=== PATIENT | male | born 1990 | race African-American/Black ===

== ENCOUNTER 2024-02-17 12:00 | Emergency (ER) | payer OTHER, SELFPAY ==
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
--- NOTE | ~2024-02-17 | CT_ITS ---
EXAMINATION: CT CERVICAL SPINE WITHOUT CONTRAST CLINICAL INFORMATION: Trauma. Pain COMPARISON: None available. TECHNIQUE: Thin section axial imaging with sagittal and coronal reformats. This CT examination was performed using dose optimization techniques as appropriate, variously including the following: *Automated exposure control *Adjustment of mA and/or kV according to patient size (this includes techniques or standardized protocols for targeted exams where dose is matched to indication/reason for exam; i.e. extremities or head) *Use of iterative reconstruction technique DLP: 459.94 mGy-cm FINDINGS: No fracture or destructive lesion or alignment abnormality. Prevertebral soft tissues are normal. There is no encroachment on the spinal canal. CT/CT cervical spine wo IV con IMPRESSION: Unremarkable examination. Fleischner guidelines were followed.
[2024-02-17 12:23] VITALS: BP 137/91; PULSE 57; RESP 16; TEMP 37.1; O2SAT 100; BMI 21.6
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
[2024-02-17 16:00] VITALS: BP 155/98; PULSE 65; RESP 14; TEMP 36.2; O2SAT 100
== END 2024-02-17 16:03 | disposition home or self-care (01) ==
PROVIDERS: Emergency Provider Emergency Medicine
DX: S01.312A Laceration without foreign body of left ear, initial encounter (principal); R51.9 Headache, unspecified; M54.2 Cervicalgia; Y04.2XXA Assault by strike against or bumped into by another person, initial encounter; Y93.9 Activity, unspecified; Y92.219 Unspecified school as the place of occurrence of the external cause; Y99.0 Civilian activity done for income or pay
CPT/HCPCS: 12011; 70450; 72125; 99282; 99284